=== PATIENT | female | born 1975 | race Caucasian/White ===

== ENCOUNTER 2018-03-07 21:43 | Observation (INO) | payer OTHER ==
[2018-03-07 22:35] LABS: ADD MAN DIFF? NO
[2018-03-07 22:38] LABS: WHITE BLOOD COUNT 8.3 10^3/ul (4.8-10.8)
[2018-03-07 22:38] LABS: BASOPHILS % 0.5 % (0.0-2.0); EOSINOPHILS # 0.1 10^3/ul (0.0-0.5); EOSINOPHILS % 1.2 % (0.0-7.0); HEMATOCRIT 37.4 % (37.0-47.0); HEMOGLOBIN 12.5 g/dl (12.0-16.0); LYMPHOCYTES # 1.7 10^3/ul (0.8-2.9); LYMPHOCYTES % 20.9 % (15.0-51.0); MEAN CORPUSCULAR HEMOGLOBIN 28.8 pg (29.0-33.0); MEAN CORPUSCULAR HGB CONC 33.4 g/dl (32.0-37.0); MEAN CORPUSCULAR VOLUME 86.2 fl (82.0-101.0); MEAN PLATELET VOLUME 11.3 fl (7.4-10.4); MONOCYTE # 0.7 10^3/ul (0.3-0.9); MONOCYTES % 7.8 % (0.0-11.0); NEUTROPHIL # 5.8 10^3/ul (1.6-7.5); NEUTROPHILS % 69.4 % (39.0-77.0); PLATELET COUNT 208 10^3/UL (140-415); RED BLOOD COUNT 4.34 10^6/ul (4.20-5.40); RED CELL DISTRIBUTION WIDTH 13.2 % (11.5-14.5)
[2018-03-07] MEDS: NITROGLYCERIN 2% 1 GM OINT PKT TD (22:43)
[2018-03-07] MEDS: ASPIRIN 325 MG TAB PO (22:43)
[2018-03-07 22:59] LABS: ANION GAP 13 (8-16); BLOOD UREA NITROGEN 10 mg/dl (7-20); CALCIUM 9.3 mg/dl (8.4-10.2); CARBON DIOXIDE 28 mmol/L (21-31); CHLORIDE 104 mmol/L (97-110); CREATININE 0.72 mg/dl (0.44-1.00); GLUCOSE 113 mg/dl (70-220); POTASSIUM 3.6 mmol/L (3.5-5.1); SODIUM 141 mmol/L (135-144)
[2018-03-07 23:11] LABS: TROPONIN-I < 0.012 ng/ml (0.000-0.120)
[2018-03-07] MEDS ORDERED: ONDANSETRON 4 MG INJ IV (23:30)
[2018-03-07] MEDS ORDERED: ACETAMINOPHEN 325 MG TAB PO (23:30)
[2018-03-08] MEDS ORDERED: ACETAMINOPHEN 325 MG TAB PO (02:00)
[2018-03-08] MEDS ORDERED: NITROGLYCERIN (SL) 0.4 MG TAB SL (02:00)
[2018-03-08] MEDS ORDERED: ALBUTEROL/IPRATROPIUM (NEB) 3 ML AMP HHN (02:00)
[2018-03-08] MEDS ORDERED: NACL 0.9% 3 ML SYG IV (02:00)
[2018-03-08] MEDS ORDERED: ONDANSETRON 4 MG INJ IV (02:00)
[2018-03-08 05:48] LABS: ADD MAN DIFF? NO
[2018-03-08 05:50] LABS: BASOPHILS % 0.5 % (0.0-2.0); EOSINOPHILS # 0.1 10^3/ul (0.0-0.5); EOSINOPHILS % 1.9 % (0.0-7.0); HEMATOCRIT 33.5 % (37.0-47.0); HEMOGLOBIN 11.2 g/dl (12.0-16.0); LYMPHOCYTES # 1.6 10^3/ul (0.8-2.9); LYMPHOCYTES % 25.5 % (15.0-51.0); MEAN CORPUSCULAR HEMOGLOBIN 28.4 pg (29.0-33.0); MEAN CORPUSCULAR HGB CONC 33.4 g/dl (32.0-37.0); MEAN PLATELET VOLUME 11.4 fl (7.4-10.4); MONOCYTE # 0.6 10^3/ul (0.3-0.9); MONOCYTES % 9.5 % (0.0-11.0); NEUTROPHILS % 62.4 % (39.0-77.0); PLATELET COUNT 185 10^3/UL (140-415); RED BLOOD COUNT 3.94 10^6/ul (4.20-5.40); RED CELL DISTRIBUTION WIDTH 13.4 % (11.5-14.5)
[2018-03-08 05:50] LABS: WHITE BLOOD COUNT 6.3 10^3/ul (4.8-10.8)
[2018-03-08 06:07] LABS: HEMOGLOBIN A1C 5.7 % (0-5.9)
[2018-03-08 06:16] LABS: ALANINE AMINOTRANSFERASE 47 IU/L (13-69); ALBUMIN 3.3 g/dl (3.3-4.9); ALKALINE PHOSPHATASE 79 IU/L (42-121); ANION GAP 11 (8-16); ASPARTATE AMINO TRANSFERASE 30 IU/L (15-46); BILIRUBIN,INDIRECT 0.4 mg/dl (0-1.1); BILIRUBIN,TOTAL 0.4 mg/dl (0.2-1.3); BLOOD UREA NITROGEN 9 mg/dl (7-20); CALCIUM 8.8 mg/dl (8.4-10.2); CARBON DIOXIDE 30 mmol/L (21-31); CHLORIDE 105 mmol/L (97-110); CHOL/HDL RATIO 3.9 RATIO; CHOLESTEROL 151 mg/dl (100-200); CREATINE KINASE 37 IU/L (23-200); CREATININE 0.54 mg/dl (0.44-1.00); GLUCOSE 106 mg/dl (70-220); HDL CHOLESTEROL 38 mg/dl (34-88); LDL CHOLESTEROL,CALCULATED 94 mg/dl; POTASSIUM 3.8 mmol/L (3.5-5.1); SODIUM 142 mmol/L (135-144); TOTAL PROTEIN 6.3 g/dl (6.1-8.1); TRIGLYCERIDES 97 mg/dl (0-149)
[2018-03-08 06:25] LABS: CK INDEX 1.5; CK-MB 0.57 ng/ml (0.0-2.4); TROPONIN-I < 0.012 ng/ml (0.000-0.120)
[2018-03-08] MEDS: ASPIRIN 81 MG TAB PO (08:48)
[2018-03-08] MEDS: ENOXAPARIN 40 MG/0.4 ML SYG SC (08:49)
[2018-03-08 11:46] LABS: CREATINE KINASE 41 IU/L (23-200)
[2018-03-08 12:00] LABS: CK-MB 0.42 ng/ml (0.0-2.4); TROPONIN-I < 0.012 ng/ml (0.000-0.120)
== END 2018-03-08 10:39 | disposition home or self-care (01) ==
LOC: TEL 23:10 → E/R 03-08 11:28
DX: R07.89 Other chest pain (principal); E66.9 Obesity, unspecified; Z68.33 Body mass index [BMI] 33.0-33.9, adult
CPT/HCPCS: 71045; 80048; 80053; 80061; 81025; 82550; 82553; 83036; 84443; 84484; 85025; 93005; G0378